=== PATIENT | male | born 1960 | race Caucasian/White ===

== ENCOUNTER 2018-07-02 21:17 | Inpatient (IN) ==
[2018-07-02] MEDS ORDERED: ATIVAN IV ONE (21:23)
[2018-07-02] MEDS ORDERED: THIAMINE 100 MG in NS 50 ML IV ONE (21:24)
--- NOTE | 2018-07-02 21:28 | PROVIDER DOCUMENTATION ---
HPI-Neurological Disorder - General Chief Complaint: Alcohol Withdrawal Stated Complaint: Weakness Time Seen by Provider: 07/02/18 21:23 Source: patient Allergies/Adverse Reactions: Patient Allergies Allergy/AdvReac Type Severity Reaction Status Date / Time No Known Allergies Allergy Verified 07/02/18 21:26 Home Medications: Home Medication List Medication Instructions Recorded Confirmed Last Taken Type NK [No Home Medications] 07/02/18 07/02/18 Unknown History - History of Present Illness-Neuro Nature of Presenting Problem: Patient is a 58 year old white male with history of alcohol abuse, drinks about 60oz of beer daily until he abruptly stopped 28 days ago, who presents by EMS with increasing resting tremor,tachycardia, and anxiety. Denies headache, fever, recent head injury, or visual changes. patient reports biting his tongue tonight. Onset/Duration: reports: gradual, other (onset 28 days ago) Timing: reports: getting worse Review of Systems - Adult - REVIEW OF SYSTEMS - ADULT Constitutional: denies: chills, fever Eyes: denies: blurred vision Ears, Nose, Mouth & Throat: reports: other (tongue abrasion after biting tonight ) Cardiovascular: denies: chest pain Respiratory: denies: shortness of breath Gastrointestinal: denies: abdominal pain, nausea, vomiting Genitourinary: denies: dysuria Musculoskeletal: reports: no symptoms reported Integumentary: denies: rash Neurological: reports: see HPI, loss of balance Psychiatric: reports: anxiety Endocrine: reports: no symptoms reported Hematologic/Lymphatic: reports: no symptoms reported Allergic/Immunologic: reports: no symptoms reported All Other Systems: Reviewed and Negative Past History - Adult - PAST MEDICAL HISTORY-ADULT Review of Records: reports: Old Records Reviewed, Nursing Assessment Review, Medications Reviewed, Social history reviewed & non-contributory. Major Childhood Illnesses: reports: denies history Cardiovascular: reports: denies history Respiratory: reports: denies history Gastrointestinal: reports: denies history Genitourinary: reports: denies history Musculoskeletal: reports: denies history Neurological: reports: other (DT's, alcohol withdrawal) Psychiatric: reports: anxiety Endocrine/Immune: reports: denies history - PRIOR SURGERIES/PROCEDURES Surgical/Procedure History: reports: none - FAMILY HISTORY Family History: reviewed, not pertinent - SOCIAL HISTORY Smoking: denies Substance Use: denies Number of drinks per typical drinking period:: 5-10 drinks Living Situation: family Physical Exam- Neurological - Physical Exam-Neuro General Appearance: alert, obese, other (appear postictal) Eye Exam: bilateral eye: PERRL HENMT: moist mucous membranes, other (abrasion over tongue border with dried blood) Head Injury: no evidence of injury Neck: non-tender, full range of motion, supple Respiratory: chest non-tender, lungs clear, normal breath sounds Cardiovascular: tachycardia Abdominal Exam: normal bowel sounds, non tender, soft Lymphatic: no adenopathy Peripheral Pulses: radial (R): 2+, radial (L): 2+ Extremity: normal range of motion, 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 hearing, PERRL Motor/Sensory: no motor deficit, no sensory deficit Neurologic: grossly normal Integumentary: normal color, normal turgor, warm/dry - Glascow Coma Scale Best Eye Response: (4) open spontaneously Best Verbal Response: (5) oriented Best Motor Response: (6) obeys commands Total Glascow Score: 15 Progress - PLAN OF CARE/RESULTS Progress/Plan/Lab Results: Vital Signs - 8 hr 07/02/18 21:17 07/02/18 21:27 07/02/18 22:02 Temperature 98.5 F Pulse Rate 110 H 102 H Respiratory Rate 20 19 Blood Pressure 164/113 146/102 O2 Sat by Pulse Oximetry 96 96 Laboratory Results - last 24 hr 07/02/18 07/02/18 07/02/18 20:41 20:41 20:41 WBC 4.71 L RBC 4.31 L Hgb 14.1 Hct 40.4 L MCV 93.7 MCH 32.7 H MCHC 34.9 RDW Std Deviation 13.7 Plt Count 64 L MPV 10.6 H Immature Gran % (Auto) 0.2 Neut % (Auto) 53.4 Lymph % (Auto) 24.4 [place] % (Auto) 21.4 H Eos % (Auto) 0.4 Baso % (Auto) 0.2 Immature Gran # (Auto) 0.01 Neut # (Auto) 2.51 Lymph # (Auto) 1.15 L [place] # (Auto) 1.01 H Eos # (Auto) 0.02 Baso # (Auto) 0.01 Segmented Neutrophils 55 Lymphocytes 25 Monocytes 20 H PT 13.7 INR 1.00 PTT (Actin FS) 30.3 Sodium 131 L Potassium 2.8 L Chloride 88 L Carbon Dioxide 26 Anion Gap 18 BUN 10 Creatinine 0.9 Estimated GFR/1.73 m2 > 60 BUN/Creatinine Ratio 11 Glucose 125 H POC Glucose Calculated Osmolality 263 Calcium 9.5 Total Bilirubin 1.30 H AST 66 H ALT 46 H Alkaline Phosphatase 64 Total Protein 7.2 Albumin 4.1 Globulin 3.0 Albumin/Globulin Ratio 1.0 Urine Opiates Screen Ur Oxycodone Screen Urine Methadone Screen U Propoxyphene Qual Ur Barbituates Screen Ur Tricyclics Screen Ur Phencyclidine Scrn Ur Amphetamines Screen U Methamphetamines Scrn U Benzodiazepines Scrn Urine Cocaine Screen U Cannabinoids Screen 07/02/18 07/02/18 22:00 22:02 WBC RBC Hgb Hct MCV MCH MCHC RDW Std Deviation Plt Count MPV Immature Gran % (Auto) Neut % (Auto) Lymph % (Auto) [place] % (Auto) Eos % (Auto) Baso % (Auto) Immature Gran # (Auto) Neut # (Auto) Lymph # (Auto) [place] # (Auto) Eos # (Auto) Baso # (Auto) Segmented Neutrophils Lymphocytes Monocytes PT INR PTT (Actin FS) Sodium Potassium Chloride Carbon Dioxide Anion Gap BUN Creatinine Estimated GFR/1.73 m2 BUN/Creatinine Ratio Glucose POC Glucose 131 H Calculated Osmolality Calcium Total Bilirubin AST ALT Alkaline Phosphatase Total Protein Albumin Globulin Albumin/Globulin Ratio Urine Opiates Screen NONE DETECTED Ur Oxycodone Screen NONE DETECTED Urine Methadone Screen NONE DETECTED U Propoxyphene Qual NONE DETECTED Ur Barbituates Screen NONE DETECTED Ur Tricyclics Screen NONE DETECTED Ur Phencyclidine Scrn NONE DETECTED Ur Amphetamines Screen NONE DETECTED U Methamphetamines Scrn NONE DETECTED U Benzodiazepines Scrn NONE DETECTED Urine Cocaine Screen NONE DETECTED U Cannabinoids Screen NONE DETECTED Orders Category Date Time Status FSBS/Accucheck Result NOW Care 07/02/18 21:25 Active Seizure Precautions ROUTINE Care 07/02/18 21:[address] HEAD W/O CONTRAST [CT] Stat Exams 07/02/18 21:24 Taken CBC WITH ELECTRONIC DIFF [HEME] Stat Lab 07/02/18 20:41 Completed CMP [COMPREHENSIVE METABOLIC PANEL] [CHEM] Stat Lab 07/02/18 20:41 Completed PROTIME WITH INR [COAG] Stat Lab 07/02/18 20:41 Completed PTT [COAG] Stat Lab 07/02/18 20:41 Completed URINE DRUG SCREEN PL Stat Lab 07/02/18 22:00 Completed Levetiracetam 1000 mg/Ns [Keppra 1,000 mg/Ns] Med 07/02/18 21:40 Discontinued 1,000 mg in 100 ml .ROUTE As Directed Levetiracetam [Keppra] 1,000 mg Med 07/02/18 21:33 Discontinued 0.9% Sodium Chloride Inj [Ns] 100 ml IV NOW Lorazepam [Ativan] Med 07/02/18 21:23 Discontinued 1 mg IV NOW ONE Mvi [M.v.i.-12] 10 ml Med 07/02/18 21:34 Discontinued Folic Acid 1 mg Magnesium Sulfate 1 gm Thiamine 100 mg 0.9% Sodium Chloride Inj [Ns] 1,000 ml IV NOW Thiamine 100 mg Med 07/02/18 21:24 Discontinued 0.9% Sodium Chloride Inj [Ns] 50 ml IV NOW patient had a witnessed generalized seizure shortly after arrival lasting <1 minute. Result Diagrams: 07/02/18 20:41 07/02/18 20:41 - CT/MRI 1 CT Study: Head CT Results: NAD - CONSULTS/PCP/HOSPITALIST Notification #1 *Consult/PCP/Hospitalist*: Dr. Sanchez, hospitalist Time Discussed: 00:14 Consult Disposition: Admit Departure - Departure Date of Disposition Decision: 07/03/18 Time of Disposition Decision: 00:16 DIAGNOSIS: Alcohol withdrawal seizure Qualifiers: Complication of substance-induced condition: with unspecified complication Qualified Code(s): F10.239 - Alcohol dependence with withdrawal, unspecified; R56.9 - Unspecified convulsions Alcohol dependence Qualifiers: Substance use status: unspecified alcohol-induced disorder Qualified Code(s): F10.29 - Alcohol dependence with unspecified alcohol-induced disorder Disposition: ADMITTED INPATIENT 09 Certified Medical Emergency: Emergent Condition: Stable Referrals and Follow-Ups: None,PCP [Primary Care Provider] - - Critical Care Note This patient required my direct & personal management of CC.: Yes Total Time (mins): 151 Critical Care Statement: This patient required my direct personal management to treat or rule out processes, the absence of which, could potentiallly result in sudden, clinically significant life or limb threatening deterioration. Attestation - Physician/ GAYE Attestation Patient care was provided by Advanced Practice Provider:: No The physician spent face to face time with patient:: Yes Advanced Practice Provider documentation review:: Supervising physician onsite and consulted in the evaluation and care of this patient. The physician did have a face to face encounter with the patient.
[2018-07-02] MEDS ORDERED: KEPPRA 1,000 MG in NS 100 ML IV ONE (21:33)
[2018-07-02] MEDS ORDERED: M.V.I.-12 10 ML, FOLIC ACID 1 MG, MAGNESIUM SULFATE 1 GM, THIAMINE 100 MG in NS 1,000 ML IV ONE (21:34)
[2018-07-02] MEDS ORDERED: KEPPRA 1,000 MG/NS 1,000 MG/100 ML IVPB ONE (21:40)
[2018-07-02 22:00] LABS: BASO# 0.01 X1000 (0.0-0.2); BASO% 0.2 % (0.0-0.8); EOS# 0.02 X1000 (0.0-0.7); EOS% 0.4 % (0.0-10.0); HEMATOCRIT 40.4 % (42.0-52.0); HEMOGLOBIN 14.1 g/dL (14.0-18.0); IMM GRAN# 0.01 X1000 (0.0-0.04); IMM GRAN% 0.2 % (0.0-0.5); LYMPH# 1.15 X1000 (1.2-3.4); LYMPH% 24.4 % (20.5-51.1); MCH 32.7 PG (27-31); MCHC 34.9 g/dL (33-37); MCV 93.7 FL (81-99); MONO# 1.01 X1000 (0.11-0.59); MONO% 21.4 % (1.7-9.3); MPV 10.6 FL (7.4-10.4); NEUT# 2.51 X1000 (1.4-6.5); NEUT% 53.4 % (42.2-75.2); PLT 64 X1000 (130-400); RBC 4.31 XMIL (4.7-6.1); RDW 13.7 % (11.5-14.5); WBC 4.71 X1000 (4.8-10.8)
[2018-07-02 22:01] LABS: LYMPHS 25 % (21-51); MONO 20 % (1-9); SEGS 55 % (42-75)
[2018-07-02 22:14] LABS: ESTIMATED GFR > 60
[2018-07-02 22:18] LABS: AGAP 18; ALBUMIN 4.1 g/dL (3.5-5.0); ALKALINE PHOSPHATASE 64 U/L (32-122); BUN 10 mg/dL (8-22); CALCIUM 9.5 mg/dL (8.8-10.2); CHLORIDE 88 mmol/L (98-107); COSMO 263; CREATININE 0.9 mg/dL (0.7-1.2); GLUCOSE 125 mg/dL (70-104); GOT 66 U/L (10-34); GPT 46 U/L (10-44); POTASSIUM 2.8 mmol/L (3.5-5.1); PROTIME 13.7 Seconds (11.0-16.0); SODIUM 131 mmol/L (136-145); TCO2 26 mmol/L (25-35); TOTAL PROTEIN 7.2 g/dL (6.3-8.3)
[2018-07-02 22:19] LABS: PTT 30.3 Seconds (22.3-41.8)
[2018-07-02 22:38] LABS: UR AMPHETAMINES QUAL NONE DETECTED (NONE DETECT); UR BARBITUATES QUAL NONE DETECTED (NONE DETECT); UR BENZODIAZEPIN QUAL NONE DETECTED (NONE DETECT); UR CANNABINOIDS QUAL NONE DETECTED (NONE DETECT); UR COCAINE QUAL NONE DETECTED (NONE DETECT); UR METHADONE QUAL NONE DETECTED (NONE DETECT); UR METHAMPHETAMINE QUAL NONE DETECTED (NONE DETECT); UR OPIATES QUAL NONE DETECTED (NONE DETECT); UR OXYCODONE QUAL NONE DETECTED (NONE DETECT); UR PCP QUAL NONE DETECTED (NONE DETECT); UR PROPOXYPHENE QUAL NONE DETECTED (NONE DETECT); UR TCA QUAL NONE DETECTED (NONE DETECT)
[2018-07-03] MEDS ORDERED: ZYPREXA ZYDIS SL PRN (00:18)
[2018-07-03] MEDS: ATIVAN 20 MG in NS 190 ML IV SCH ×2 (03:00→13:27)
[2018-07-03] MEDS: ATIVAN IV PRN ×5 (04:23→20:55)
[2018-07-03] MEDS: GEODON IM PRN ×2 (06:00→20:55)
--- NOTE | 2018-07-03 08:37 | Diag Imaging Result Doc PS360 ---
EXAM: CT HEAD W/O CONTRAST 07/02/2018 HISTORY: tremor,etoh withdrawal TECHNIQUE: This exam was performed using automated exposure control, adjustment of mA or kV according to patient size, and/or use of iterative reconstruction technique. COMMENT: There is no evidence of mass effect, bleed, abnormal extra-axial fluid collection, or hydrocephalus. There are no previous studies. There is a moderate degree of atrophy. There is minimal mucosal thickening in the right maxillary sinus. There are no air-fluid levels. There is minimal fluid in the left mastoid air cells. IMPRESSION: No evidence of acute intracranial disease. Atrophy. Electronically signed by Nik Rmey 07/03/2018 8:34 AM
[2018-07-03 09:49] LABS: BASO# 0.01 X1000 (0.0-0.2); BASO% 0.2 % (0.0-0.8); EOS# 0.02 X1000 (0.0-0.7); EOS% 0.5 % (0.0-10.0); HEMATOCRIT 39.8 % (42.0-52.0); HEMOGLOBIN 13.7 g/dL (14.0-18.0); IMM GRAN# 0.01 X1000 (0.0-0.04); IMM GRAN% 0.2 % (0.0-0.5); LYMPH# 0.74 X1000 (1.2-3.4); LYMPH% 16.8 % (20.5-51.1); MCH 32.5 PG (27-31); MCHC 34.4 g/dL (33-37); MCV 94.3 FL (81-99); MONO# 0.69 X1000 (0.11-0.59); MONO% 15.7 % (1.7-9.3); MPV 9.6 FL (7.4-10.4); NEUT# 2.93 X1000 (1.4-6.5); NEUT% 66.6 % (42.2-75.2); PLT 54 X1000 (130-400); RBC 4.22 XMIL (4.7-6.1); RDW 13.9 % (11.5-14.5)
[2018-07-03 09:58] LABS: AGAP 10; BUN 7 mg/dL (8-22); CALCIUM 9.1 mg/dL (8.8-10.2); CHLORIDE 99 mmol/L (98-107); COSMO 273; CREATININE 0.7 mg/dL (0.7-1.2); ESTIMATED GFR > 60; GLUCOSE 90 mg/dL (70-104); SODIUM 138 mmol/L (136-145); TCO2 30 mmol/L (25-35)
[2018-07-03] MEDS ORDERED: M.V.I.-12 10 ML, FOLIC ACID 1 MG, MAGNESIUM SULFATE 1 GM, THIAMINE 100 MG in NS 1,000 ML IV SCH ×2 (11:00→15:08)
--- NOTE | 2018-07-03 11:20 | HISTORY AND PHYSICAL ---
PRIMARY CARE PHYSICIAN: None. CHIEF COMPLAINT: Alcohol withdrawal, weakness, and upon arrival to the emergency room had a witnessed seizure secondary to alcohol withdrawal. HISTORY OF PRESENT ILLNESS: This is a 58-year-old white male who presents to [facility] ER with increased resting tremors, tachycardia, anxiety. States that he drinks about 60 ounces of beer daily and abruptly stopped approximately 28 days ago. He was noted to have a tongue abrasion to his tongue after he had a witnessed seizure in the emergency room after arrival that was most likely secondary to alcohol withdrawal. His workup showed a blood pressure of 164/113, heart rate was 110. Laboratory data showed a sodium of 131, a potassium of 2.8, total bilirubin of 1.30, AST of 66, ALT 46. So he was admitted to the intensive care unit for further evaluation and treatment. PAST MEDICAL HISTORY: Alcohol withdrawal. PAST SURGICAL HISTORY: None. FAMILY HISTORY: Reviewed and noncontributory. SOCIAL HISTORY: He lives with family. Was drinking 60 ounces of beer daily. Denied any smoking or illicit drug use. ALLERGIES: He has no known drug allergies. HOME MEDICATIONS: He does not take any medications on a routine basis. LABORATORY DATA: Showed a white blood cell count of 4.71, hemoglobin of 14.1, hematocrit 40.4, platelets 64,000. PT and INR of 13.7 and 1. Sodium of 131, potassium 2.8, chloride 88, CO2 26, BUN of 10, creatinine 0.9, glucose 125. Total bilirubin of 1.30, AST of 66, ALT of 46. Urine drug screen showed none detected. CT of the head showed no evidence of acute intracranial disease and atrophy. REVIEW OF SYSTEMS: Unable to obtain from patient at this time as he is lethargic from his Ativan drip. PHYSICAL EXAMINATION: VITAL SIGNS: On arrival he had a temperature of 98.5 degrees, pulse of 110, respirations 20, blood pressure 164/113, saturating 96% on room air. GENERAL: This is a 58-year-old male who is lying in the bed, unable to answer questions as he is lethargic and arouses only momentarily with a sternal rub secondary to having an Ativan drip for his alcohol withdrawal. HEENT: Normocephalic, atraumatic. Normal ENT inspection. Oropharynx and nares are clear. Eyes: Pupils are equal, round, reactive to light and accommodation. Extraocular movements are intact. NECK: Normal inspection. Normal range of motion. LUNGS: Clear to auscultation bilaterally with equal lung expansion and chest wall movement. HEART: With regular rate and rhythm. No murmurs, rubs, or gallops. ABDOMEN: Soft, nontender, nondistended. Bowel sounds are present x4 quadrants. MUSCULOSKELETAL: He has 5/5 strength x4 extremities. NEUROLOGICAL: The cranial nerves 2-12 appear grossly intact. ASSESSMENT: 1. Alcohol withdrawal. 2. Alcohol withdrawal seizure. 3. Ethanol abuse. 4. Elevated liver function tests. 5. Thrombocytopenia. 6. Hyponatremia. 7. Hypokalemia. PLAN: He was admitted to the intensive care unit. We had to initiate nonviolent wrist restraints bilaterally. O2 per protocol. He is on a Ativan drip per protocol. He received Keppra 1000 mg IV x1 in the emergency room. A banana bag of fluids was given in the emergency room and we will continue that daily. We are going to recheck a CBC and a BMP now. He has been placed on seizure precautions. He also has Ativan 2 to 4 mg IV p.r.n. Further orders after seen by attending. Dictated by TERESA Lowry for Mikey Sanchez MD cc: TERESA Lowry MD
[2018-07-03] MEDS: POTASSIUM CHLORIDE 20 MEQ/SWI 20 MEQ/100 ML IVPB IV SCH ×2 (14:35→16:41)
[2018-07-03] MEDS ORDERED: SALINE LOCK IV FLUID XX ONE (15:23)
[2018-07-03] MEDS ORDERED: BENTYL PO PRN (15:23)
[2018-07-03] MEDS ORDERED: NS 1,000 ML IV SCH (15:30)
[2018-07-03] MEDS: PROTONIX IV SCH (16:31)
[2018-07-03] MEDS: SODIUM CHLORIDE 0.9% INJ SCH (16:31)
[2018-07-03] MEDS: NS 1,000 ML IV SCH ×2 (16:49→18:18)
--- NOTE | 2018-07-03 18:54 | HISTORY AND PHYSICAL ---
ADDENDUM: He had longstanding history of alcohol withdrawal. Reportedly he stopped a month ago but then he had a seizure the day of admission which was last night, tachycardia, hypertension. Initially he was mentating okay and then he started developing more agitation. His physical exam was unremarkable. He is on an Ativan drip now very sedated. He does have elevated liver enzymes and hypokalemia. The patient will be admitted for alcohol withdrawal. He is on an Ativan drip. We will continue banana bag infusion, supplement potassium. As far as the seizures he was given Keppra. It seems like a month later is a bit irregular to cause withdrawal seizures so I am not sure if there is another event contributing. Head CT was negative. At this point we will hold further antiepileptics and monitor. He is on Ativan and we will follow. I am not going to commit him to long-term antiepileptic drugs pending full workup in observation. This is a [id number] encounter note with Deborah Bojorquez. cc: Mikey Sanchez MD
[2018-07-04] MEDS: ATIVAN IV PRN ×6 (01:21→21:42)
[2018-07-04] MEDS: NS 1,000 ML IV SCH ×4 (02:00→21:41)
[2018-07-04 07:26] LABS: EOS# 0.02 X1000 (0.0-0.7); EOS% 0.5 % (0.0-10.0); HEMATOCRIT 40.3 % (42.0-52.0); HEMOGLOBIN 13.4 g/dL (14.0-18.0); IMM GRAN# 0.01 X1000 (0.0-0.04); IMM GRAN% 0.2 % (0.0-0.5); LYMPH# 0.65 X1000 (1.2-3.4); LYMPH% 15.9 % (20.5-51.1); MCH 32.1 PG (27-31); MCHC 33.3 g/dL (33-37); MCV 96.6 FL (81-99); MONO# 0.77 X1000 (0.11-0.59); MONO% 18.8 % (1.7-9.3); MPV 10.1 FL (7.4-10.4); NEUT# 2.64 X1000 (1.4-6.5); NEUT% 64.6 % (42.2-75.2); PLT 66 X1000 (130-400); RBC 4.17 XMIL (4.7-6.1); RDW 14.1 % (11.5-14.5); WBC 4.09 X1000 (4.8-10.8)
[2018-07-04 07:32] LABS: AGAP 15; ALBUMIN 3.4 g/dL (3.5-5.0); ALKALINE PHOSPHATASE 50 U/L (32-122); BUN 6 mg/dL (8-22); CALCIUM 9.1 mg/dL (8.8-10.2); CHLORIDE 105 mmol/L (98-107); COSMO 282; CREATININE 0.6 mg/dL (0.7-1.2); ESTIMATED GFR > 60; GLUCOSE 85 mg/dL (70-104); GOT 48 U/L (10-34); GPT 36 U/L (10-44); MAGNESIUM 2.2 mg/dL (1.5-2.7); PHOSPHORUS 2.6 mg/dL (2.7-4.5); POTASSIUM 3.4 mmol/L (3.5-5.1); SODIUM 143 mmol/L (136-145); TCO2 23 mmol/L (25-35); TOTAL PROTEIN 6.3 g/dL (6.3-8.3)
[2018-07-04] MEDS: STERILE WATER INJ. INJ PRN (07:59)
[2018-07-04] MEDS: GEODON IM PRN (07:59)
[2018-07-04] MEDS ORDERED: POTASSIUM CHLORIDE 20 MEQ, MAGNESIUM SULFATE 2 GM, THIAMINE 100 MG, FOLIC ACID 1 MG, M.... IV SCH ×6 (09:00)
[2018-07-04] MEDS: LIBRIUM PO SCH ×3 (13:02→21:41)
[2018-07-04] MEDS: PROTONIX IV SCH (15:10)
[2018-07-04] MEDS: SODIUM CHLORIDE 0.9% INJ SCH (15:10)
--- NOTE | 2018-07-05 00:45 | PROGRESS NOTE ---
DATE: 07/04/2018 SUBJECTIVE: The patient seems to be doing better. He is less agitated. It does appear as though he stopped drinking only a few days ago, as opposed to a month ago. After he awakened some this way, the story seems to have changed somewhat. PHYSICAL EXAMINATION: Vital Signs: Temperature, he is afebrile. Pulse 88, respiratory rate 20, blood pressure 173/99. General: Patient is currently in no respiratory distress. He is still confused, but a little bit more oriented. He is less agitated. HEENT: Normocephalic. Neck: Supple. Cardiovascular: Regular rate. Chest: Clear. Abdomen: Soft. Extremities: Moves all extremities. ASSESSMENT: 1. Delirium tremens, with acute alcohol withdrawal and agitation. 2. Chronic alcohol abuse. 3. Elevated liver function tests. 4. Thrombocytopenia. 5. Hypokalemia. PLAN: We will continue to wean his Ativan drip. We will hopefully transition to p.o. Librium. Will follow. cc: Kolby Hernandez MD
[2018-07-05] MEDS: NS 1,000 ML IV SCH ×4 (05:26→19:45)
[2018-07-05] MEDS: LIBRIUM PO SCH ×4 (05:30→22:17)
[2018-07-05] MEDS: POTASSIUM CHLORIDE 20 MEQ, MAGNESIUM SULFATE 2 GM, THIAMINE 100 MG, FOLIC ACID 1 MG, M.... IV SCH ×6 (09:08)
[2018-07-05] MEDS: ATIVAN IV PRN (09:12)
[2018-07-05 11:03] LABS: HEPATITIS PROFILE ACUTE SEE COMMENTS
--- NOTE | 2018-07-05 13:46 | Diag Imaging Result Doc PS360 ---
EXAM: CHEST-PORTABLE HISTORY: dyspnea TECHNIQUE: Portable chest single view COMPARISON: None. FINDINGS: The lungs are well expanded. The heart is not enlarged. The vessels are not distended. There are no infiltrates. No effusion identified. IMPRESSION: Negative exam. Electronically signed by Mc Guajardo 07/05/2018 1:43 PM
[2018-07-05] MEDS: SODIUM CHLORIDE 0.9% INJ SCH (15:15)
[2018-07-05] MEDS: PROTONIX IV SCH (15:15)
[2018-07-05] MEDS: TOBRADEX OPH SUSP BOTH EYES SCH (20:57)
--- NOTE | 2018-07-06 00:18 | PROGRESS NOTE ---
DATE: 07/05/2018 SUBJECTIVE: Staff notes that the patient is lot less agitated today. He is starting to have episodes where he is able to talk to them. PHYSICAL EXAMINATION: Temperature 98, pulse 106, respiratory 34, BP 159/118 currently, was 134/86 on the previous check. General: The patient is lying in bed. He is in no current respiratory distress. He is awake, alert. HEENT: Normocephalic. Neck: Supple. Cardiovascular: Regular rate. Chest: Clear, nonlabored. Abdomen: Soft, nondistended. Extremities: Moves all extremities. ASSESSMENT: 1. Alcohol withdrawal. 2. Alcohol withdrawal-related seizure. 3. Chronic alcohol abuse. 4. Thrombocytopenia. 5. Hypokalemia. PLAN: We will continue the patient in the hospital. Continue to follow. Further orders as needed. cc: Kolby Hernandez MD
[2018-07-06] MEDS: TOBRADEX OPH SUSP BOTH EYES SCH ×4 (02:44→23:39)
[2018-07-06] MEDS: ATIVAN IV PRN ×2 (04:20→09:33)
[2018-07-06] MEDS: LIBRIUM PO SCH ×4 (04:22→23:40)
[2018-07-06] MEDS: NS 1,000 ML IV SCH ×3 (04:22→18:24)
[2018-07-06 07:56] LABS: AGAP 12; ALBUMIN 2.8 g/dL (3.5-5.0); ALKALINE PHOSPHATASE 40 U/L (32-122); BUN 7 mg/dL (8-22); CALCIUM 8.7 mg/dL (8.8-10.2); CHLORIDE 97 mmol/L (98-107); COSMO 265; CREATININE 0.6 mg/dL (0.7-1.2); ESTIMATED GFR > 60; GLUCOSE 83 mg/dL (70-104); GOT 22 U/L (10-34); GPT 20 U/L (10-44); HEMATOCRIT 38.2 % (42.0-52.0); HEMOGLOBIN 12.9 g/dL (14.0-18.0); MAGNESIUM 2.3 mg/dL (1.5-2.7); MCH 31.9 PG (27-31); MCHC 33.8 g/dL (33-37); MCV 94.6 FL (81-99); MPV 9.7 FL (7.4-10.4); POTASSIUM 3.3 mmol/L (3.5-5.1); RBC 4.04 XMIL (4.7-6.1); RDW 12.9 % (11.5-14.5); SODIUM 134 mmol/L (136-145); TCO2 25 mmol/L (25-35); WBC 3.09 X1000 (4.8-10.8)
[2018-07-06] MEDS: POTASSIUM CHLORIDE 20 MEQ, MAGNESIUM SULFATE 2 GM, THIAMINE 100 MG, FOLIC ACID 1 MG, M.... IV SCH ×6 (08:39)
[2018-07-06] MEDS: PROTONIX IV SCH (18:18)
--- NOTE | 2018-07-07 01:20 | PROGRESS NOTE ---
DATE: 07/06/2018 SUBJECTIVE: Patient is a lot more awake, alert this morning. However, he is still confused, disoriented. We will continue to follow. Hopefully, he can continue to improve. His withdrawal symptoms appear to be improving. PHYSICAL EXAMINATION: Vital Signs: Temperature 98.5 degrees, pulse 90, respiratory 25, BP 119/99. General: Patient is more awake, however, he still continues disoriented. HEENT: Normocephalic. Neck: Supple. CARDIOVASCULAR: Regular rate. Chest: Clear. Abdomen: Soft, nondistended. Extremities: Moves all extremities. Neurologic: No changes. Skin: Warm, dry. No rashes. ASSESSMENT: 1. Acute alcohol withdrawal. 2. Recent alcohol withdrawal related seizure. 3. Chronic alcohol abuse. 4. Thrombocytopenia. 5. Hyponatremia. 6. Hypokalemia. PLAN: We will continue to follow patient. Continue to treat symptomatically. Further orders as needed. cc: Kolby Hernandez MD
[2018-07-07] MEDS: ATIVAN IV PRN (03:15)
[2018-07-07] MEDS: TOBRADEX OPH SUSP BOTH EYES SCH ×4 (03:15→19:54)
[2018-07-07] MEDS: LIBRIUM PO SCH ×4 (04:29→21:44)
[2018-07-07] MEDS: NS 1,000 ML IV SCH ×3 (04:31→21:50)
[2018-07-07 06:34] LABS: HEMATOCRIT 35.7 % (42.0-52.0); HEMOGLOBIN 12.3 g/dL (14.0-18.0); MCH 32.3 PG (27-31); MCHC 34.5 g/dL (33-37); MCV 93.7 FL (81-99); MPV 9.6 FL (7.4-10.4); RBC 3.81 XMIL (4.7-6.1); RDW 13.3 % (11.5-14.5)
[2018-07-07 07:11] LABS: AGAP 11; BUN 5 mg/dL (8-22); CALCIUM 8.9 mg/dL (8.8-10.2); CHLORIDE 100 mmol/L (98-107); COSMO 273; CREATININE 0.6 mg/dL (0.7-1.2); ESTIMATED GFR > 60; GLUCOSE 95 mg/dL (70-104); POTASSIUM 2.9 mmol/L (3.5-5.1); SODIUM 138 mmol/L (136-145); TCO2 27 mmol/L (25-35)
[2018-07-07] MEDS: POTASSIUM CHLORIDE 20 MEQ, MAGNESIUM SULFATE 2 GM, THIAMINE 100 MG, FOLIC ACID 1 MG, M.... IV SCH ×6 (10:12)
[2018-07-07] MEDS: SODIUM CHLORIDE 0.9% INJ SCH (15:10)
[2018-07-07] MEDS: PROTONIX IV SCH (15:10)
[2018-07-07] MEDS: STERILE WATER INJ. INJ PRN (19:54)
[2018-07-07] MEDS: GEODON IM PRN (19:54)
[2018-07-07] MEDS: ROBAXIN PO PRN (19:54)
[2018-07-08] MEDS: ATARAX PO PRN ×2 (00:14→19:40)
--- NOTE | 2018-07-08 01:22 | PROGRESS NOTE ---
DATE: 07/07/2018 SUBJECTIVE: Patient seen and examined by myself on the 7th. He is much more awake, alert. He is still somnolent, but easily awakens. He is able to talk with the staff. He is eating better. PHYSICAL EXAMINATION: Vital Signs: Temperature 98 degrees, pulse 96, BP 104/73. General: Patient is awake, alert. He is much more oriented, but still somnolent but easily arousable. HEENT: Normocephalic. Neck: Supple. Cardiovascular: Regular rate. Chest: Clear. Abdomen: Soft. Extremities: Moves all extremities. ASSESSMENT: 1. Alcohol withdrawal with seizure. 2. Chronic alcohol use and abuse. 3. Hypokalemia. 4. Hyponatremia. 5. Thrombocytopenia. PLAN: We will continue patient in the hospital. Continue Librium taper. Continue to follow. Hopefully can transition to the floor soon. cc: Kolby Hernandez MD
[2018-07-08] MEDS: TOBRADEX OPH SUSP BOTH EYES SCH ×4 (02:31→19:41)
[2018-07-08] MEDS: ROBAXIN PO PRN ×2 (02:32→19:40)
[2018-07-08] MEDS: LIBRIUM PO SCH ×4 (03:51→22:32)
[2018-07-08 08:08] LABS: HEMATOCRIT 35.4 % (42.0-52.0); HEMOGLOBIN 12.1 g/dL (14.0-18.0); MCH 32.5 PG (27-31); MCHC 34.2 g/dL (33-37); MCV 95.2 FL (81-99); MPV 9.2 FL (7.4-10.4); RBC 3.72 XMIL (4.7-6.1); RDW 13.2 % (11.5-14.5); WBC 2.65 X1000 (4.8-10.8)
[2018-07-08 08:15] LABS: AGAP 8; ALBUMIN 2.6 g/dL (3.5-5.0); ALKALINE PHOSPHATASE 35 U/L (32-122); BUN 4 mg/dL (8-22); CALCIUM 8.7 mg/dL (8.8-10.2); CHLORIDE 106 mmol/L (98-107); COSMO 278; CREATININE 0.5 mg/dL (0.7-1.2); ESTIMATED GFR > 60; GLUCOSE 97 mg/dL (70-104); GOT 18 U/L (10-34); GPT 15 U/L (10-44); MAGNESIUM 2.3 mg/dL (1.5-2.7); POTASSIUM 3.1 mmol/L (3.5-5.1); SODIUM 141 mmol/L (136-145); TCO2 27 mmol/L (25-35); TOTAL PROTEIN 5.4 g/dL (6.3-8.3)
[2018-07-08] MEDS: POTASSIUM CHLORIDE 20 MEQ, MAGNESIUM SULFATE 2 GM, THIAMINE 100 MG, FOLIC ACID 1 MG, M.... IV SCH ×6 (08:51)
[2018-07-08] MEDS: PROTONIX IV SCH (14:51)
[2018-07-08] MEDS: SODIUM CHLORIDE 0.9% INJ SCH (14:51)
[2018-07-08] MEDS ORDERED: ZYRTEC PO ONE (17:58)
[2018-07-08] MEDS: ATIVAN IV PRN (19:40)
[2018-07-08] MEDS: FLONASE NAS SCH (22:33)
[2018-07-09] MEDS: TOBRADEX OPH SUSP BOTH EYES SCH ×4 (01:30→20:07)
[2018-07-09] MEDS: GEODON IM PRN (01:30)
[2018-07-09] MEDS: ROBAXIN PO PRN ×3 (01:31→23:00)
--- NOTE | 2018-07-09 03:54 | PROGRESS NOTE ---
DATE: 07/08/2018 SUBJECTIVE: Patient notes that he is feeling better. He is still having some fatigue. The staff notes that he is staying more awake and alert longer during the day. He did eat supper. PHYSICAL EXAMINATION: Vital Signs: Temperature 98.2 degrees, pulse 70, respiratory 20, BP 140/89. General: Patient is awake, alert, currently in no distress. HEENT: Normocephalic. Neck: Supple. Cardiovascular: Regular rate. Chest: Clear. Abdomen: Soft. Extremities: Moves all extremities. ASSESSMENT: 1. Hypokalemia. We will continue to replace and recheck. 2. Thrombocytopenia. 3. Hyponatremia, resolved. 4. Acute alcohol withdrawal. 5. Recent alcohol withdrawal seizure. PLAN: Patient overall is improving. We will continue to wean Librium. Continue to encourage physical therapy participation. His hepatitis has improved. Sodium has returned back to normal. Hopefully, patient can transition to the floor today. He can begin more aggressive physical therapy. cc: Kolby Hernandez MD
[2018-07-09] MEDS: LIBRIUM PO SCH ×4 (04:55→21:35)
[2018-07-09] MEDS: ATARAX PO PRN ×2 (08:34→23:00)
[2018-07-09] MEDS: POTASSIUM CHLORIDE 20 MEQ, MAGNESIUM SULFATE 2 GM, THIAMINE 100 MG, FOLIC ACID 1 MG, M.... IV SCH ×6 (08:34)
[2018-07-09] MEDS: PRILOSEC PO SCH (08:34)
[2018-07-09] MEDS: FLONASE NAS SCH ×2 (08:35→21:37)
[2018-07-09] MEDS: ATIVAN IV PRN ×2 (13:34→21:40)
--- NOTE | 2018-07-10 01:06 | PROGRESS NOTE ---
DATE: 07/09/2018 SUBJECTIVE: Patient overall notes that he is feeling better. Staff notes he is a little more awake and alert. Family also notes that he is doing better. PHYSICAL EXAMINATION: Vital Signs: Temperature 98.3 degrees, pulse 62, respiratory 20, BP 120/72. General: Patient is awake, alert. He is in no current respiratory distress. HEENT: Normocephalic. Neck: Supple. Cardiovascular: Regular rate. Chest: Clear. Abdomen: Soft. Extremities: Moves all extremities. Neurologic: No changes. ASSESSMENT: 1. Acute alcohol withdrawal. 2. Chronic alcohol abuse. 3. Thrombocytopenia. 4. Adult failure to thrive. PLAN: We will continue patient on Librium taper, continue physical therapy. Further orders as needed. cc: Kolby Hernandez MD
[2018-07-10] MEDS: TOBRADEX OPH SUSP BOTH EYES SCH ×4 (01:07→19:39)
[2018-07-10] MEDS: ATIVAN IV PRN ×2 (02:58→19:39)
[2018-07-10] MEDS: LIBRIUM PO SCH ×5 (04:07→22:01)
[2018-07-10] MEDS: PRILOSEC PO SCH (06:05)
[2018-07-10 06:09] LABS: HEMATOCRIT 36.4 % (42.0-52.0); HEMOGLOBIN 12.5 g/dL (14.0-18.0); MCHC 34.3 g/dL (33-37); MCV 93.1 FL (81-99); MPV 9.1 FL (7.4-10.4); RBC 3.91 XMIL (4.7-6.1); RDW 13.3 % (11.5-14.5); WBC 4.63 X1000 (4.8-10.8)
[2018-07-10 06:18] LABS: AGAP 11; ALBUMIN 2.9 g/dL (3.5-5.0); ALKALINE PHOSPHATASE 45 U/L (32-122); BUN 3 mg/dL (8-22); CHLORIDE 103 mmol/L (98-107); COSMO 278; CREATININE 0.6 mg/dL (0.7-1.2); ESTIMATED GFR > 60; GLUCOSE 94 mg/dL (70-104); GOT 19 U/L (10-34); GPT 17 U/L (10-44); MAGNESIUM 2.2 mg/dL (1.5-2.7); SODIUM 141 mmol/L (136-145); TCO2 27 mmol/L (25-35); TOTAL PROTEIN 5.9 g/dL (6.3-8.3)
[2018-07-10] MEDS: POTASSIUM CHLORIDE 20 MEQ, MAGNESIUM SULFATE 2 GM, THIAMINE 100 MG, FOLIC ACID 1 MG, M.... IV SCH ×6 (08:22)
[2018-07-10] MEDS: FLONASE NAS SCH ×2 (08:23→21:13)
--- NOTE | 2018-07-10 19:20 | PROGRESS NOTE ---
DATE: 07/10/2018 SUBJECTIVE: The patient notes he is feeling better, he is still sleepy. He has not really been out of bed yet. PHYSICAL: Temperature 97.3, pulse 75, respiratory 20, BP 116/97.General: Patient is awake, alert, he is in no current distress, he is in no current alcohol withdrawal issues. This has improved. HEENT: Normocephalic. Neck: Supple. CV: Regular rate. Chest: Clear, nonlabored. Abdomen: Soft, nondistended. Extremities: Moves all extremities. ASSESSMENT: 1. Chronic alcoholism. 2. Alcohol withdrawal improved. 3. Generalized weakness. 4. Other. PLAN: We will start weaning patient's Librium to 25 q.6 today and hopefully can continue to wean this over the next few days. Will get physical therapy involved, if patient is able to tolerate weaning as well as tolerate physical therapy can be discharged home over the next few days. cc: Kolby Hernandez MD
[2018-07-10] MEDS: ATARAX PO PRN (21:13)
[2018-07-10] MEDS: ROBAXIN PO PRN (21:14)
[2018-07-11] MEDS: TOBRADEX OPH SUSP BOTH EYES SCH ×4 (01:09→20:01)
[2018-07-11] MEDS: ATIVAN IV PRN ×2 (02:14→20:07)
[2018-07-11] MEDS: LIBRIUM PO SCH ×4 (04:14→22:13)
[2018-07-11] MEDS: PRILOSEC PO SCH (06:06)
[2018-07-11] MEDS: FLONASE NAS SCH ×2 (09:50→20:07)
[2018-07-11] MEDS ORDERED: KLOR-CON PO ONE (18:08)
--- NOTE | 2018-07-11 19:41 | PROGRESS NOTE ---
DATE: 07/11/2018 SUBJECTIVE: Patient has no focal complaints. OBJECTIVE: Vital Signs: Blood pressure is 118/58, heart rate of 92, respiratory rate 18, temperature 99.2 degrees. Cardiovascular: Regular rate and rhythm. Pulmonary: Bilateral breath sounds. Clear to auscultation. Gastrointestinal: Abdomen soft, nontender, nondistended. Bowel sounds are positive. LABORATORY DATA: White count is 4, hemoglobin and hematocrit 12 and 36, platelets 232,000, potassium 3. Mag has actually been pretty normal, I think we can stop checking it. PROBLEM LIST: 1. Alcohol withdrawal syndrome. We will continue Librium taper. 2. Severe generalized weakness. I am not sure if this may be an alcoholic myopathy, but he just cannot walk. I do not know if he has some thiamine deficiency, B12 deficiency, that may have caused some issues. He is a bit anemic but not profoundly so. We will check his B12 levels. He has already gotten folate so it is going to be hard to say, that is an issue and we will continue those. DISPOSITION: Hopefully, pending physical strength training, we will be able to get him out of here soon. I am not sure what his rehab options are at this point. cc: Mikey Sanchez MD
[2018-07-11] MEDS: FOLIC ACID PO SCH (20:06)
[2018-07-11] MEDS: VITAMIN B-1 PO SCH (20:06)
[2018-07-12] MEDS: TOBRADEX OPH SUSP BOTH EYES SCH ×4 (01:01→19:44)
[2018-07-12] MEDS: ATIVAN IV PRN ×2 (03:22→19:44)
[2018-07-12] MEDS: LIBRIUM PO SCH (04:43)
[2018-07-12] MEDS: PRILOSEC PO SCH (06:10)
[2018-07-12 06:30] LABS: BASO# 0.03 X1000 (0.0-0.2); BASO% 0.5 % (0.0-0.8); EOS# 0.06 X1000 (0.0-0.7); EOS% 0.9 % (0.0-10.0); HEMATOCRIT 38.8 % (42.0-52.0); IMM GRAN# 0.07 X1000 (0.0-0.04); IMM GRAN% 1.1 % (0.0-0.5); LYMPH# 1.46 X1000 (1.2-3.4); LYMPH% 22.3 % (20.5-51.1); MCH 31.6 PG (27-31); MCHC 33.5 g/dL (33-37); MCV 94.2 FL (81-99); MONO% 12.2 % (1.7-9.3); MPV 9.3 FL (7.4-10.4); NEUT# 4.14 X1000 (1.4-6.5); PLT 271 X1000 (130-400); RBC 4.12 XMIL (4.7-6.1); RDW 13.5 % (11.5-14.5); WBC 6.56 X1000 (4.8-10.8)
[2018-07-12 06:37] LABS: AGAP 11; BUN 6 mg/dL (8-22); CALCIUM 9.1 mg/dL (8.8-10.2); CHLORIDE 103 mmol/L (98-107); COSMO 278; CREATININE 0.8 mg/dL (0.7-1.2); ESTIMATED GFR > 60; GLUCOSE 90 mg/dL (70-104); PHOSPHORUS 3.9 mg/dL (2.7-4.5); POTASSIUM 3.7 mmol/L (3.5-5.1); SODIUM 141 mmol/L (136-145); TCO2 27 mmol/L (25-35)
[2018-07-12] MEDS: FOLIC ACID PO SCH (09:08)
[2018-07-12] MEDS: THERA M PLUS PO SCH (09:08)
[2018-07-12] MEDS: VITAMIN B-1 PO SCH (09:08)
[2018-07-12] MEDS: FLONASE NAS SCH ×2 (09:08→21:32)
[2018-07-12] MEDS ORDERED: LIBRIUM PO SCH (13:00)
--- NOTE | 2018-07-12 15:43 | PROGRESS NOTE ---
DATE: 07/12/2018 SUBJECTIVE: Patient has no major complaints. OBJECTIVE: Vital signs: Blood pressure is 112/63, heart rate 74, respiratory rate 18, temperature 98 degrees, 96% on room air. Cardiovascular: Regular rate and rhythm. Pulmonary: Bilateral breath sounds. Clear to auscultation. Gastrointestinal: Soft, nontender, nondistended. Bowel sounds are positive. LABORATORY DATA: Her potassium is now better 3.7. Phosphorus is 3.9. Magnesium has been okay. The rest of his labs look good. PROBLEM LIST: 1. Alcohol withdrawal syndrome. He continues on Librium taper. 2. 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 He seems to be doing better. We will continue PT and follow. 3. Encephalopathy. Seems to be also slowly resolving. 4. Hypokalemia. Also slowly resolving. DISPOSITION: We are looking at rehabilitation options for him long-term. We will continue to follow. cc: Mieky Sanchez MD
[2018-07-13] MEDS: TOBRADEX OPH SUSP BOTH EYES SCH ×4 (03:14→21:24)
[2018-07-13] MEDS: PRILOSEC PO SCH (06:06)
[2018-07-13] MEDS: FOLIC ACID PO SCH (09:32)
[2018-07-13] MEDS: VITAMIN B-1 PO SCH (09:32)
[2018-07-13] MEDS: LIBRIUM PO SCH ×2 (09:32→21:25)
[2018-07-13] MEDS: THERA M PLUS PO SCH (09:32)
[2018-07-13] MEDS: FLONASE NAS SCH ×2 (09:33→21:25)
--- NOTE | 2018-07-13 21:44 | PROGRESS NOTE ---
DATE: 07/13/2018 SUBJECTIVE: Patient has no major complaints. OBJECTIVE: Vital signs: Blood pressure 112/75, heart rate 77, respiratory rate 20, temperature 97.3 degrees, 99% on room air. Cardiovascular: Regular rate and rhythm. Pulmonary: Bilateral breath sounds. Clear to auscultation. Gastrointestinal: Soft, nontender, nondistended. Bowel sounds were positive. Extremity: No clubbing or cyanosis. Lymphatic: No peripheral edema. Neurological: Nonfocal. LABORATORY DATA: White count 6, hemoglobin 12, hematocrit 38, platelets 271,000. Basic was normal. B12 normal. PROBLEM LIST: 1. Alcohol withdrawal syndrome. He seems to be doing okay. He is on a low-dose Librium taper. I am going to continue to see how he does. 2. Encephalopathy. Still has some intermittent issues, but overall improved. 3. Hypokalemia, stable. DISPOSITION: Pending rehabilitation. Anticipate discharge soon. Repeat labs tomorrow just to make sure there are no major changes, but I think he should be able to be discharged once rehabilitation bed is available. cc: Mikey Sanchez MD
[2018-07-14] MEDS: TOBRADEX OPH SUSP BOTH EYES SCH ×2 (03:00→10:23)
[2018-07-14 06:17] LABS: BASO# 0.06 X1000 (0.0-0.2); BASO% 0.8 % (0.0-0.8); EOS# 0.07 X1000 (0.0-0.7); HEMOGLOBIN 12.3 g/dL (14.0-18.0); IMM GRAN# 0.06 X1000 (0.0-0.04); IMM GRAN% 0.8 % (0.0-0.5); LYMPH# 1.49 X1000 (1.2-3.4); LYMPH% 20.3 % (20.5-51.1); MCH 31.5 PG (27-31); MCHC 33.2 g/dL (33-37); MCV 94.9 FL (81-99); MONO# 0.81 X1000 (0.11-0.59); NEUT# 4.85 X1000 (1.4-6.5); NEUT% 66.1 % (42.2-75.2); PLT 305 X1000 (130-400); RDW 13.4 % (11.5-14.5); WBC 7.34 X1000 (4.8-10.8)
[2018-07-14] MEDS: PRILOSEC PO SCH (06:25)
[2018-07-14 06:28] LABS: AGAP 10; BUN 6 mg/dL (8-22); CALCIUM 8.9 mg/dL (8.8-10.2); CHLORIDE 104 mmol/L (98-107); COSMO 279; CREATININE 0.7 mg/dL (0.7-1.2); ESTIMATED GFR > 60; GLUCOSE 105 mg/dL (70-104); POTASSIUM 3.3 mmol/L (3.5-5.1); SODIUM 141 mmol/L (136-145); TCO2 27 mmol/L (25-35)
[2018-07-14 06:31] LABS: MAGNESIUM 2.1 mg/dL (1.5-2.7); PHOSPHORUS 4.1 mg/dL (2.7-4.5)
[2018-07-14] MEDS ORDERED: LIBRIUM PO SCH (09:00)
[2018-07-14] MEDS: FOLIC ACID PO SCH (10:23)
[2018-07-14] MEDS: THERA M PLUS PO SCH (10:23)
[2018-07-14] MEDS: FLONASE NAS SCH (10:23)
[2018-07-14] MEDS: VITAMIN B-1 PO SCH (10:24)
[2018-07-14 12:38] VITALS: BP 113/72
--- NOTE | 2018-07-14 13:54 | DISCHARGE SUMMARY ---
ADMISSION DATE: 07/02/2018 DISCHARGE DATE: 07/14/2018 PRIMARY CARE PHYSICIAN: None. ADMISSION DIAGNOSES: 1. Alcohol withdrawal. 2. Alcohol withdrawal seizure. 3. Ethanol abuse. 4. Elevated liver function tests (LFTs). 5. Thrombocytopenia. 6. Hyponatremia. 7. Hypokalemia. DISCHARGE DIAGNOSES: 1. Alcohol withdrawal syndrome, improved. 2. Encephalopathy, improved, but still with intermittent issues. 3. Hypokalemia. SUMMARY OF FINDINGS: This is a 58-year-old male who presented to the ER with increased resting tremors, tachycardia, and anxiety. States that he was drinking about 60 ounces of beer daily and abruptly stopped approximately 28 days prior. Was noted to have a tongue abrasion on his tongue after he had a witnessed seizure in the emergency room that was likely secondary to alcohol withdrawal. His blood pressure on arrival was 164/113 with a heart rate of 110. His sodium was 131, potassium at 2.8. He had some elevation in his LFTs with an AST of 66, ALT 46. He was initially admitted to the intensive care unit. We had to initiate initially nonviolent wrist restraints bilaterally and placed him on O2. He was on Ativan drip per protocol , received Keppra 1000 mg IV in the emergency room, got a banana bag of fluids. We gave him Ativan 2 to 4 mg IV p.r.n. He had been transferred out to the medical floor and has slowly improved. It was felt that he would benefit from rehabilitation so he will be discharged to [facility] today. DISCHARGE MEDICATIONS: Librium 25 mg p.o. daily, folic acid 1 mg p.o. daily, multivitamin p.o. daily omeprazole 20 mg p.o. daily, thiamin 100 mg p.o. daily. Prescription for: Folic acid 1 mg p.o. daily, multivitamin p.o. daily, omeprazole 20 mg p.o. daily. DISPOSITION: He will be discharged to [facility] for rehabilitation. COORDINATION TIME: 35-minute discharge. Dictated by TERESA Lowry for Simone Jeffries MD cc: TERESA Lowry MD I have seen and examined Mr Jenkins today. he is medically stable for discharge. Discharge recommendations have been discussed in details with him. I have reconciled his home medications. He is been discharged to [facility]. I agree with the above discharge summary. NAHEED
== END 2018-07-14 13:41 | DRG 897 ==
LOC: P.ED 21:17 → SUATTDRO 21:18 → P.ICU 21:18 → P.MEDSURG 07-09 16:48
PROVIDERS: ATTEND Internal Medicine
CPT/HCPCS: 70450; 71010; 71045; 80048; 80053; 80074; 80104; 80301; 80305; 82607; 82948; 83735; 84100; 84443; 85025; 85027; 85610; 85730; 94761; 96365; 96366; 96367; 96368; 96375; 97110; 97112; 97161; 97165; 97530; 97535; 99285; 99291; A9270; C9113; G0431; G0434; G0477; J1953; J2060; J3411; J3475; J3480; J3486; J7030; J7050; S0164; XXXXX